=== PATIENT | female | born 1940 | race Caucasian/White ===

== ENCOUNTER 2020-07-17 09:10 | Observation (INO) | payer OTHER ==
[2020-07-17 09:29] VITALS: BMI 24.0
[2020-07-17] MEDS ORDERED: LIDOCAINE 5% TOPICAL PATCH TP ONE (10:02)
[2020-07-17] MEDS ORDERED: ACETAMINOPHEN 325 MG TABLET (FP) PO ONE (10:02)
--- NOTE | 2020-07-17 10:03 | PDOC ---
History of Present Illness - General Chief Complaint: Back Pain Stated Complaint: BACK PAIN Time Seen by Provider: 07/17/20 09:20 History Source: Patient, Old Records Exam Limitations: No Limitations - History of Present Illness Initial Comments: 80 y/o female presenting to [place] ER complaining of atraumatic, right lower back pain with radiation to the lateral aspect of the right hip. Pt reports the pain has been present but minor for the past few weeks. Became acutely worse this morning around 3am when she woke to use the bathroom. Able to self ambulate without assistance. Pain temporarily improved with PO Motrin. Again worse this morning on waking. Called ambulance because she could not get out of bed. Pain is worse with movement of the torso and the right leg, as well palpation of the area. Denies migration of pain, dysuria, hematuria, urinary retention, fecal incontinence, saddle anesthesia, or weakness/paresthesia in her legs or feet, fevers, chills, chest pain, or SOB. Pt reports a remote history of similar pain several years ago that improved with physical therapy. Reviewed old imaging. Plain films in 2013 revealed Grade 2 spondylolisthesis and extensive degenerative changes at L4-L5. Past History - Travel History Traveled outside of the country in the last 30 days: No Close contact w/someone who was outside of country & ill: No - Medical History Allergies/Adverse Reactions: Allergies Allergy/AdvReac Type Severity Reaction Status Date / Time Sulfa (Sulfonamide Allergy Unknown Verified 07/17/20 09:22 Antibiotics) Latex, Natural Rubber AdvReac Verified 03/21/15 06:11 Home Medications: Ambulatory Orders Rosuvastatin Calcium [Crestor] 5 mg PO DAILY 08/25/14 Calcium Carb, Citrate/Vit D3 [Calcium + D3 ER Tablet] 1 each PO BID 07/17/20 Cholecalciferol (Vitamin D3) [Vitamin D3 -] 1,000 unit PO DAILY 07/17/20 Vit A/Vit C/Vit E/Zinc/Copper [Preservision Tablet] 1 each PO DAILY 07/17/20 COPD: No Hypercholesterolemia: Yes Other medical history: LEFT WRIST FX IN CHILDHOOD - Surgical History Other Surgical History: Remote h/o tonsillectomy - Psycho-Social/Smoking History Smoking History: Never smoked - Substance Abuse Hx (Audit-C & DAST Scrn) How often the patient has a drink containing alcohol: 2-4 times / month How often the patient has six or more drinks on one occasion: Never Score: In Men: 4 or > Positive; In Women: 3 or > Positive: 2 Screen Result (Pos requires Nsg. Audit-10AR): Negative In the last yr the pt used illegal drug/Rx for NonMed reason: No Score: Yes response is considered Positive: 0 Screen Result (Positive result requires Nsg. DAST-10): Negative Review of Systems - Review of Systems Able to Perform ROS?: Yes Comments:: 10 point review of systems completed. All systems negative except as noted above. *Physical Exam - Vital Signs Last Vital Signs Temp Pulse Resp BP Pulse Ox 98.0 F 66 15 133/87 100 07/17/20 09:19 07/17/20 09:19 07/17/20 09:19 07/17/20 09:19 07/17/20 09:19 - Physical Exam Vital signs and nursing notes reviewed. Constitutional- Well-developed, well-nourished elderly adult female in no acute distress but obvious discomfort. Found supine on hospital stretcher. Answered all questions appropriately and completely. Head- Normocephalic. No obvious external signs of trauma. Eyes- Sclerae white. Ears- Hearing grossly intact. Neck- Supple, trachea is midline. Cardiovascular / Chest- Regular rate and regular rhythm. No murmur, rubs, clicks, or gallops. Peripheral pulses- radial pulses full. Respiratory- Breathing unlabored. Speaking in multi-word responses without pausing. Equal chest rise and fall. Clear to auscultation bilaterally. No stridor, no wheezing, no rhonchi. Gastrointestinal- abdomen is soft, non-tender, non-distended. No pulsatile masses. No overlying skin lesions or obvious signs of trauma. Neuro- Alert and oriented x4. Moving all four extremities spontaneously. No facial asymmetry. No slurred speech. No focal deficits. Sensation to all four extremities intact. No saddle anesthesia. Normal rectal tone. Back: Diffuse right sided paraspinal and right posterior hip tenderness to palpation. No midline tenderness or obvious bony deformities. Lower extremities: Proximal and distal strength R: 4/5 and L 5/5. Plantar flexion and dorsiflexion 5/5 bilaterally. 3/5 patellar reflexes bilaterally. Skin- Warm, dry, and intact. No bruising, rashes, or other lesions. - No R or L CVA tenderness. Psych- Affect- appropriate. Mood- normal. Speech was non-labored, non- pressured. ED Treatment Course - LABORATORY CBC & Chemistry Diagram: 07/17/20 14:10 07/17/20 14:10 - RADIOLOGY Radiology Studies Ordered: Category Date Time Status HIP & PELVIS-RIGHT [RAD] Stat Radiology 07/17/20 10:03 Ordered SPINE-LUMBAR SACRAL [RAD] Stat Radiology 07/17/20 10:01 Ordered Medical Decision Making - Medical Decision Making 80 y/o female presenting with atraumatic right lower back pain radiating to the lateral aspect of right hip. Acute worsening of chronic mild pain. Plain films of the lumbar spine remarkable for unchanged forward subluxation of L4 and L5 with increased arthritic changes. Suspect MSK vs radicular pain. Low suspicion for Cauda Equina or Conus Medullaris syndromes, nor spinal epidural abscess vs hematoma. Approached pain relief with stepwise fashion. Initially trialed PO Tylenol and Lidoderm patch without improvement. Next given Fentanyl. Pain improved. Leg strength improved but pt remained unable to sit up in bed. Concern for unsafe discharge as pt does not have any assistance at home. 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 CBC and CMP unremarkable for acute derangement. UA revealed trace leukocyte esterase without nitrites or pyuria. Low suspicion for acute clinical relevance. Ordered lumbar MRI to evaluate for further evaluation. Will admit for inability to ambulate and further evaluation. Case discussed with WESTLEY Decker via [employer] and telephone. Requested orthopedic consultation request for Dr. Quezada; was entered in [employer]. Will f/u the consultation and pending MRI results. Observation placed under [facility] attending Dr. Lo. Case discussed with ED Attending Dr. Stock. Edward Alejandro M.D., PGY3 Emergency Medicine Residency Discharge - Discharge Information Problems reviewed: Yes Clinical Impression/Diagnosis: Low back pain radiating to right leg, Unable to ambulate Condition: Stable - Admission Yes - Follow up/Referral - Patient Discharge Instructions - Post Discharge Activity
[2020-07-17] MEDS ORDERED: ACETAMINOPHEN 325 MG TABLET (FP) ONE (11:03)
[2020-07-17] MEDS ORDERED: LIDOCAINE 5% TOPICAL PATCH ONE (11:04)
[2020-07-17 11:07] LABS: EPITHELIAL CELLS RARE /hpf
--- NOTE | 2020-07-17 14:31 | PDOC ---
Attending Attestation - Resident Resident Name: BishopEdward - ED Attending Attestation I have performed the following: I have examined & evaluated the patient, The case was reviewed & discussed with the resident, I agree w/resident's findings & plan, Exceptions are as noted - HPI HPI: 07/17/20 18:09 80 years old with chronic intermittent back pain presents with 2-day history of worsening right-sided paraspinal back discomfort radiating down the right leg unable to get out of bed this morning EMS called - Physicial Exam PE: 07/17/20 18:09 Vitals: Triage Vital signs reviewed General Appearance: No acute distress, well nourished well developed, Head: Atraumatic, Cardiac: Regular rate and rhythym, no murmurs, no rubs, no gallops, Lungs: Clear to auscultation bilateral, good air movement bilaterally, Abdomen: Soft, non distended, normal bowel sounds, non tender to palpation Rectal: No S1-S2 anesthesia good rectal tone Extremities: Full range of motion to all extremities, no cyanosis, clubbing, or edemal Significant pain with range of motion to right lower extremity Skin: Warm and dry, no rashes or lesions, no rash, no petechiae Neuro: strength intact to all extremities, sensation intact to all extremities, Psych: Normal mood, normal affect - Medical Decision Making 07/17/20 18:10 Patient with significant pain rating down right leg unable to transfer from bed Oral and IV pain medication given patient still unable to transfer from bed repeat neurologic examination intact no weakness no numbness reflexes intact no suspicion for spinal cord injury at this time Given patient's inability to transfer will require overnight observation pain control MRI for better delineation of etiology of low back discomfort Discharge - Discharge Information Problems reviewed: Yes Clinical Impression/Diagnosis: Low back pain radiating to right leg, Unable to ambulate Condition: Stable - Follow up/Referral - Patient Discharge Instructions - Post Discharge Activity
[2020-07-17 14:35] LABS: BASO % 1.7 % (0-2.0); EOS % 3.5 % (0-4.5); HEMATOCRIT 40.7 % (32.4-45.2); HEMOGLOBIN 13.4 GM/dl (10.7-15.3); LYMPH % 46.5 % (8-40); MCH 30.7 pg (25.7-33.7); MCHC 32.9 g/dl (32.0-36.0); MEAN CELL VOLUME 93.3 fl (80-96); MEAN PLT VOLUME 9.6 fl (7.5-11.1); MONO % 8.2 % (3.8-10.2); NEUT % 40.1 % (42.8-82.8); PLATELET COUNT 175 K/MM3 (134-434); RBC 4.36 M/mm3 (3.60-5.2); RDW 12.1 % (11.6-15.6); WHITE BLOOD COUNT 7.9 K/mm3 (4.0-10.8)
[2020-07-17 14:42] LABS: ALBUMIN 3.8 g/dl (3.4-5.0); BILIRUBIN,TOTAL 0.6 mg/dl (0.2-1); CALCIUM 8.9 mg/dl (8.5-10); CREATININE 0.6 mg/dl (0.55-1.3); POTASSIUM 4.2 mmol/L (3.5-5.1); TOT PROT 5.8 g/dl (6.4-8.2)
--- NOTE | 2020-07-17 14:54 | HP ---
CHIEF COMPLAINT: Lower back pain PCP: Dr. Solorzano HISTORY OF PRESENT ILLNESS: 80 year-old female with a PMH significant for HLD and chronic back pain. Patient is active, exercises 3x per week. Last seen by an orthopedist 2 years ago, had an MRI which was reportedly unremarkable. She has been experiencing low-grade back pain for several months, taking Advil nightly. Went to bed last night in usual state of health. Woke up at 3am to go to the bathroom and noticed back pain was worse. Took 2 Advil and went back to bed. This morning awoke and pain was worse, so bad as to prevent her from being able to get out of bed. She called EMS and was brought to ED by ambulance. The pain is located in the lower back, just to the right of midline. It does not radiate to the hip, it does not radiate down the leg. Patient has no pain when lying still, sitting still, or standing. Her pain is with movement and repositioning. Patient does not take pain medication on a regular basis. ER course was notable for: (1) LS xray: no acute findings; retained stool Recent Travel: No PAST MEDICAL HISTORY: Hyperlipidemia PAST SURGICAL HISTORY: Social History: lives with who is disabled; exercises 3x per week with free weights, floor exercises Smoking: Alcohol: Drugs: Allergies Sulfa (Sulfonamide Antibiotics) Allergy (Unknown, Verified 07/17/20 09:22) Latex, Natural Rubber Adverse Reaction (Verified 03/21/15 06:11) HOME MEDICATIONS: Home Medications Medication Instructions Recorded Rosuvastatin Calcium [Crestor] 5 mg PO DAILY 08/25/14 Calcium Carb, Citrate/Vit D3 1 each PO BID 07/17/20 [Calcium + D3 ER Tablet] Cholecalciferol (Vitamin D3) 1,000 unit PO DAILY 07/17/20 [Vitamin D3 -] Vit A/Vit C/Vit E/Zinc/Copper 1 each PO DAILY 07/17/20 [Preservision Tablet] REVIEW OF SYSTEMS CONSTITUTIONAL: Absent: fever, chills, diaphoresis, generalized weakness, malaise, loss of appetite, weight change HEENT: Absent: rhinorrhea, nasal congestion, throat pain, throat swelling, difficulty swallowing, mouth swelling, ear pain, eye pain, visual changes CARDIOVASCULAR: Absent: chest pain, syncope, palpitations, irregular heart rate, lightheadedness, peripheral edema RESPIRATORY: Absent: cough, shortness of breath, dyspnea with exertion, orthopnea, wheezing, stridor, hemoptysis GASTROINTESTINAL: Absent: abdominal pain, abdominal distension, nausea, vomiting, diarrhea, constipation, melena, hematochezia GENITOURINARY: Absent: dysuria, frequency, urgency, hesitancy, hematuria, flank pain, genital pain MUSCULOSKELETAL: +lower back pain with movement Absent: myalgia, arthralgia, joint swelling, back pain, neck pain SKIN: Absent: rash, itching, pallor HEMATOLOGIC/IMMUNOLOGIC: Absent: easy bleeding, easy bruising, lymphadenopathy, frequent infections ENDOCRINE: Absent: unexplained weight gain, unexplained weight loss, heat intolerance, cold intolerance NEUROLOGIC: Absent: headache, focal weakness or paresthesias, dizziness, unsteady gait, seizure, mental status changes, bladder or bowel incontinence PSYCHIATRIC: Absent: anxiety, depression, suicidal or homicidal ideation, hallucinations. PHYSICAL EXAMINATION Vital Signs - 24 hr 07/17/20 09:19 Temperature 98.0 F Pulse Rate 66 Respiratory 15 Rate Blood Pressure 133/87 O2 Sat by Pulse 100 Oximetry (%) GENERAL: Awake, alert, and fully oriented, in no acute distress. HEAD: Normal with no signs of trauma. EYES: Pupils equal, round and reactive to light, extraocular movements intact, sclera anicteric, conjunctiva clear. No lid lag. LUNGS: Breath sounds equal, clear to auscultation bilaterally. No wheezes, and no crackles. No accessory muscle use. HEART: Regular rate and rhythm, S1, S2 ABDOMEN: Soft, nontender, not distended BACK: +reproducible tenderness lower back to right of midline @ L5 UPPER EXTREMITIES: 2+ pulses, warm, well-perfused. No cyanosis. No clubbing. No peripheral edema. LOWER EXTREMITIES: 2+ pulses, warm, well-perfused. No calf tenderness. No peripheral edema. NEUROLOGICAL: Cranial nerves II-XII intact. Normal speech. Laboratory Results - last 24 hr 07/17/20 07/17/20 10:30 14:10 WBC 7.9 RBC 4.36 Hgb 13.4 Hct 40.7 MCV 93.3 MCH 30.7 MCHC 32.9 RDW 12.1 Plt Count 175 MPV 9.6 Absolute Neuts (auto) 3.1 Neutrophils % 40.1 L Lymphocytes % 46.5 H Monocytes % 8.2 Eosinophils % 3.5 Basophils % 1.7 Urine Color Yellow Urine Appearance Clear Urine pH 6.0 Urine Protein Negative Urine Glucose (UA) Negative Urine Ketones Negative Urine Blood Negative Urine Nitrite Negative Urine Bilirubin Negative Urine Urobilinogen 0.2 Ur Leukocyte Esterase Trace H Urine RBC 0-2 Urine WBC 0-2 Ur Transition Epith Cell Rare Urine Casts Rare ASSESSMENT/PLAN: 80 year-old female with a PMH significant for HLD and chronic back pain, admitted for lower back pain. Lower back pain --has no pain when not moving, pain only when repositioning; does not radiate --able to sit up and stand with minimal assistance --xray imaging shows no acute process, subluxation of L4 on L5 unchanged since 2013 --possible muscle spasm v. pyriformis syndrome? --start flexeril --IV Tylenol (has been taking daily Advil for weeks, avoid NSAIDS) --PT evaluation --ortho evaluation DVT prophylaxis: subq lovenox Dispo: full code Family Medical History Family History: As Documented Visit type - Medication Review Med list reviewed for High Risk Meds patients 65 and older: Yes - Emergency Visit Emergency Visit: Yes ED Registration Date: 07/17/20 Care time: The patient presented to the Emergency Department on the above date and was hospitalized for further evaluation of their emergent condition. - New Patient This patient is new to me today: No - Critical Care Critical Care patient: No
[2020-07-17] MEDS ORDERED: SENNOSIDES/DOCUSATE COMBO (SENNA PLUS) TABLET (UD) PO ONE (14:56)
[2020-07-17] MEDS ORDERED: CYCLOBENZAPRINE HCL 5 MG TABLET PO SCH (17:00)
[2020-07-17] MEDS ORDERED: ACETAMINOPHEN 1000 MG/100 ML VIAL (NON FORMULARY) IVPB PRN (17:01)
[2020-07-17] MEDS: CYCLOBENZAPRINE HCL 10 MG TABLET (FP) PO SCH (21:58)
[2020-07-17] MEDS: POLYETHYLENE GLYCOL 3350 119 GM BTL PO SCH ×2 (21:59→22:07)
[2020-07-17] MEDS ORDERED: ROSUVASTATIN CA 5 MG TABLET (FP) PO SCH (22:00)
[2020-07-17] MEDS ORDERED: LIDOCAINE PATCH REMOVAL MC SCH (22:00)
[2020-07-18] MEDS: CYCLOBENZAPRINE HCL 10 MG TABLET (FP) PO SCH (05:31)
--- NOTE | 2020-07-18 08:04 | DS ---
Physical Exam: SUBJECTIVE: Patient seen and examined OBJECTIVE: Vital Signs Period Temp Pulse Resp BP Sys/Carr Pulse Ox Last 24 Hr 98.0 F-98.7 F 63-76 15-18 95-133/52-87 94-100 PHYSICAL EXAM GENERAL: Awake, alert, and fully oriented, in no acute distress. LUNGS: Breath sounds equal, clear to auscultation bilaterally. No wheezes, and no crackles. No accessory muscle use. HEART: Regular rate and rhythm, S1, S2 ABDOMEN: Soft, nontender, not distended BACK: +reproducible tenderness lower back to right of midline @ L5 UPPER EXTREMITIES: 2+ pulses, warm, well-perfused. No cyanosis. No clubbing. No peripheral edema. LOWER EXTREMITIES: 2+ pulses, warm, well-perfused. No calf tenderness. No peripheral edema. NEUROLOGICAL: Cranial nerves II-XII intact. Normal speech. LABS Laboratory Results - last 24 hr 07/17/20 07/17/20 07/17/20 10:30 14:10 14:10 WBC 7.9 RBC 4.36 Hgb 13.4 Hct 40.7 MCV 93.3 MCH 30.7 MCHC 32.9 RDW 12.1 Plt Count 175 MPV 9.6 Absolute Neuts (auto) 3.1 Neutrophils % 40.1 L Lymphocytes % 46.5 H Monocytes % 8.2 Eosinophils % 3.5 Basophils % 1.7 Sodium 141 Potassium 4.2 Chloride 106 Carbon Dioxide 25 Anion Gap 10 BUN 19.0 H Creatinine 0.6 Est GFR (CKD-EPI)AfAm 101.18 Est GFR (CKD-EPI)NonAf 87.30 Random Glucose 107 H Calcium 8.9 Total Bilirubin 0.6 AST 23 ALT 27 Alkaline Phosphatase 57 Total Protein 5.8 L Albumin 3.8 Urine Color Yellow Urine Appearance Clear Urine pH 6.0 Urine Protein Negative Urine Glucose (UA) Negative Urine Ketones Negative Urine Blood Negative Urine Nitrite Negative Urine Bilirubin Negative Urine Urobilinogen 0.2 Ur Leukocyte Esterase Trace H Urine RBC 0-2 Urine WBC 0-2 Ur Transition Epith Cell Rare Urine Bacteria Few Urine Casts [employer] HOSPITAL COURSE: Date of Admission:07/17/20 Date of Discharge: 07/18/20 Pre hospital course 80 year-old female with a PMH significant for HLD and chronic back pain. Patient is active, exercises 3x per week. Last seen by an orthopedist 2 years ago, had an MRI which was reportedly unremarkable. She has been experiencing low-grade back pain for several months, taking Advil nightly. Went to bed last night in usual state of health. Woke up at 3am to go to the bathroom and noticed back pain was worse. Took 2 Advil and went back to bed. This morning awoke and pain was worse, so bad as to prevent her from being able to get out of bed. She called EMS and was brought to ED by ambulance. The pain is located in the lower back, just to the right of midline. It does not radiate to the hip, it does not radiate down the leg. Patient has no pain when lying still, sitting still, or standing. Her pain is with movement and repositioning. Patient does not take pain medication on a regular basis. ER course (1) LS xray: no acute findings; retained stool Subsequent hospital course Spondylolthesis, DDD --xray imaging showed no acute process, subluxation of L4 on L5 unchanged since 2013 --possible muscle spasm v. pyriformis syndrome? --treated overnight with flexeril and Tylenol with improvement --seen and evaluated by ortho who sent scripts for Flexeril and meloxicam --may benefit from LSO brace, f/u with ortho in 7-10 days Minutes to complete discharge: 35 Discharge Summary Problems reviewed: Yes Reason For Visit: LOW BACK PAIN RADIATING TO RIGHT LOWER EXTREMITY Current Active Problems Low back pain radiating to right leg (Acute) Unable to ambulate (Acute) Condition: Stable - Instructions Diet, Activity, Other Instructions: You were seen and evaluated by the Dr. Genao's team. They have sent two prescriptions to your pharmacy, cyclobenzaprine/Flexeril and Meloxicam. Take these medications as directed. It is recommended you followup with Dr. Genao in 7-10 days of your discharge. Please call his office to make an appointment. Referrals: Kareem Solorzano MD [Primary Care Provider] - Artie Genao MD [Staff Physician] - 1 Week - Home Medications Comprehensive Discharge Medication List: Ambulatory Orders Rosuvastatin Calcium [Crestor] 5 mg PO DAILY 08/25/14 Calcium Carb, Citrate/Vit D3 [Calcium + D3 ER Tablet] 1 each PO BID 07/17/20 Cholecalciferol (Vitamin D3) [Vitamin D3 -] 1,000 unit PO DAILY 07/17/20 Vit A/Vit C/Vit E/Zinc/Copper [Preservision Tablet] 1 each PO DAILY 07/17/20 This patient is new to me today: No Emergency Visit: Yes ED Registration Date: 07/17/20 Care time: The patient presented to the Emergency Department on the above date and was hospitalized for further evaluation of their emergent condition. Critical Care patient: No - Discharge Referral Referred to [facility] Yes Physician Referral: Kareem Solorzano MD (Int Med)
--- NOTE | 2020-07-18 08:21 | CON.ORTH ---
Consult Reason for Consultation:: lbp - Past Medical History ...: No - Alcohol/Substance Use Hx Alcohol Use: No - Smoking History Smoking history: Never smoked Home Medications - Allergies Allergies/Adverse Reactions: Allergies Allergy/AdvReac Type Severity Reaction Status Date / Time Sulfa (Sulfonamide Allergy Unknown Verified 07/17/20 09:22 Antibiotics) Latex, Natural Rubber AdvReac Verified 03/21/15 06:11 - Home Medications Home Medications: Ambulatory Orders Rosuvastatin Calcium [Crestor] 5 mg PO DAILY 08/25/14 Calcium Carb, Citrate/Vit D3 [Calcium + D3 ER Tablet] 1 each PO BID 07/17/20 Cholecalciferol (Vitamin D3) [Vitamin D3 -] 1,000 unit PO DAILY 07/17/20 Vit A/Vit C/Vit E/Zinc/Copper [Preservision Areds Tablet] 1 each PO DAILY 07/17/20 Cyclobenzaprine HCl 5 mg PO TID #60 tablet 07/18/20 Meloxicam 15 mg PO DAILY #60 tablet 07/18/20 Physical Exam for Ortho Vital Signs: Vital Signs Temperature 98.6 F 07/18/20 06:00 Pulse Rate 76 07/18/20 06:00 Respiratory Rate 18 07/18/20 06:00 Blood Pressure 115/58 L 07/18/20 06:00 O2 Sat by Pulse Oximetry (%) 94 L 07/18/20 06:00 Other Findings/Remarks: LS spine- + paraspinal ttp, mild ttp over right greater troch, ROM with pain but no significantly limited, neg slr, nvi Imaging - Results X-ray: Report Reviewed, Image Reviewed Assessment/Plan 80 year-old female with a PMH significant for HLD and chronic back pain. Patient is active, exercises 3x per week. Last seen by an orthopedist 2 years ago, had an MRI which was reportedly unremarkable. She has been experiencing low-grade back pain for several months, taking Advil nightly. Went to bed last night in usual state of health. Woke up at 3am to go to the bathroom and noticed back pain was worse. Took 2 Advil and went back to bed. This morning awoke and pain was worse, so bad as to prevent her from being able to get out of bed. She called EMS and was brought to ED by ambulance. The pain is located in the lower back, just to the right of midline. It does not radiate to the hip, it does not radiate down the leg. Patient has no pain when lying still, sitting still, or standing. Her pain is with movement and repositioning. Patient does not take pain medication on a regular basis. Pt is currently feeling better today. She denies any numbness, tingling, bowel/bladder dysfunction. a/p L4-5 spondylolithesis, DDD PT eval, wbat NSAIDS and muscle relaxers Heat and stretching ok to d/c from ortho pov may benefit from LSO brace, can be given as outpt f/u in office in 7-10 days d/w Dr. Genao
[2020-07-18 08:24] LABS: BASO % 1.8 % (0-2.0); EOS % 3.3 % (0-4.5); HEMOGLOBIN 13.2 GM/dl (10.7-15.3); LYMPH % 44.7 % (8-40); MCH 31.8 pg (25.7-33.7); MCHC 33.8 g/dl (32.0-36.0); MEAN CELL VOLUME 94.3 fl (80-96); MEAN PLT VOLUME 9.6 fl (7.5-11.1); NEUT % 42.2 % (42.8-82.8); PLATELET COUNT 182 K/MM3 (134-434); RBC 4.14 M/mm3 (3.60-5.2); RDW 12.1 % (11.6-15.6); WHITE BLOOD COUNT 8.9 K/mm3 (4.0-10.8)
[2020-07-18 08:31] LABS: ALBUMIN 3.7 g/dl (3.4-5.0); BILIRUBIN,TOTAL 0.5 mg/dl (0.2-1); CALCIUM 8.8 mg/dl (8.5-10); CREATININE 0.6 mg/dl (0.55-1.3); MAGNESIUM 1.9 mg/dL (1.8-2.4); POTASSIUM 4.1 mmol/L (3.5-5.1); TOT PROT 5.6 g/dl (6.4-8.2)
[2020-07-18] MEDS ORDERED: ENOXAPARIN NA (PORCINE) 40 MG/0.4 ML DISP.SYRIN SQ SCH (10:00)
[2020-07-18] MEDS ORDERED: SENNOSIDES/DOCUSATE COMBO (SENNA PLUS) TABLET (UD) PO SCH (10:00)
[2020-07-18 10:05] VITALS: BP 110/68; PULSE 79; TEMP 98.4
[2020-07-18] MEDS: POLYETHYLENE GLYCOL 3350 119 GM BTL PO SCH (10:07)
--- NOTE | 2020-07-18 10:41 | EKG ---
Test Reason : Blood Pressure : / mmHG Vent. Rate : 063 BPM Atrial Rate : 063 BPM P-R Int : 162 ms QRS Dur : 088 ms QT Int : 448 ms P-R-T Axes : 026 045 039 degrees QTc Int : 458 ms NORMAL SINUS RHYTHM NONSPECIFIC ST AND T WAVE ABNORMALITY NO PREVIOUS ECGS AVAILABLE Confirmed by BONNIE BAIRES MD ([id number]) on 07/18/2020 10:40:37 AM Referred By: AV SINGLETARY Confirmed By:BONNIE BAIRES MD
== END 2020-07-18 12:45 | disposition home or self-care (01) ==
LOC: FER 09:10 → FM/S 14:05
PROVIDERS: ADMIT Internal Medicine; ATTEND Nurse Practitioner Acute Care
PROC: 3E033NZ Introduction of Analgesics, Hypnotics, Sedatives into Peripheral Vein, Percutaneous Approach (ICD-10-PCS; principal; 2020-07-17)
DX: M51.36 Other intervertebral disc degeneration, lumbar region (principal); M43.10 Spondylolisthesis, site unspecified; E78.5 Hyperlipidemia, unspecified; Z88.2 Allergy status to sulfonamides; Z88.8 Allergy status to other drugs, medicaments and biological substances; Z91.09 Other allergy status, other than to drugs and biological substances
CPT/HCPCS: 36415; 72100-TC-FY; 73523-TC-FY; 80053; 81003; 81015; 83735; 85025; 87086; 87186; 93005; 96374; 97116-GP; 97161-GP; 99285-25; G0378; U0003

== ENCOUNTER 2023-06-02 08:27 | Day surgery (SDC) | payer OTHER ==
[2023-05-27 13:43] VITALS: BMI 25.4
[2023-06-02] MEDS ORDERED: PHENYLEPHRINE 2.5% OPTHALMIC DROP 2ML BOTTLE ONE (08:47)
[2023-06-02] MEDS ORDERED: CYCLOPENTOLATE 2% OPHTH SOLN 2 ML BOTTLE ONE (08:47)
[2023-06-02] MEDS ORDERED: CIPROFLOXACIN 0.3% EYE DROPS 5 ML BOTTLE ONE (08:47)
[2023-06-02] MEDS ORDERED: TROPICAMIDE 1% OPHTH SOLN 15 ML BOTTLE ONE (08:47)
[2023-06-02] MEDS ORDERED: TROPICAMIDE 1% OPHTH SOLN 15 ML BOTTLE OS ONE ×3 (09:00→09:10)
[2023-06-02] MEDS ORDERED: CIPROFLOXACIN 0.3% EYE DROPS 5 ML BOTTLE OS ONE ×3 (09:00→09:10)
[2023-06-02] MEDS ORDERED: CYCLOPENTOLATE 2% OPHTH SOLN 2 ML BOTTLE OS ONE ×3 (09:00→09:10)
[2023-06-02] MEDS ORDERED: PHENYLEPHRINE 2.5% OPHTH SOLN 15 ML BOTTLE OS ONE ×3 (09:00→09:10)
[2023-06-02 09:12] VITALS: RESP 16; TEMP 97.4
[2023-06-02] MEDS ORDERED: MIDAZOLAM HCL 2 MG/2 ML SINGLE DOSE VIAL ONE ×2 (09:32→10:31)
[2023-06-02] MEDS ORDERED: NEO/POLYMYX B SULF/DEXAMETH OPHTHALMIC 5ML BOTTLE ONE (09:51)
[2023-06-02] MEDS ORDERED: TETRACAINE 0.5% OPHTH SOLN 2 ML BOTTLE ONE (09:51)
[2023-06-02] MEDS ORDERED: CARBACHOL 0.01% INTRA-OCULAR 1.5 ML VIAL ONE (09:51)
[2023-06-02] MEDS ORDERED: LIDOCAINE 1% P/F 10 MG/ML VIAL ONE (09:51)
[2023-06-02] MEDS ORDERED: EPINEPHrine/PF 1 MG/1 ML (1:1,000) AMPULE ONE (09:51)
[2023-06-02] MEDS ORDERED: BSS (NA/CA/MG/K) BALANCED SALT SOLUTION OPHTH SOLN 15 ML BOTTLE ONE (09:51)
[2023-06-02 10:53] VITALS: BP 116/65; PULSE 66
== END 2023-06-02 11:27 | disposition home or self-care (01) ==
LOC: FASU 08:27
PROVIDERS: ATTEND Ophthalmology
PROC: 08RK3JZ Replacement of Left Lens with Synthetic Substitute, Percutaneous Approach (ICD-10-PCS; principal; 2023-06-02 10:00)
DX: H26.8 Other specified cataract (principal)
CPT/HCPCS: 66984; V2632

== ENCOUNTER 2023-09-07 08:38 | Day surgery (SDC) | payer OTHER ==
[2023-09-02 14:18] VITALS: BMI 25.4
[2023-09-07] MEDS ORDERED: MIDAZOLAM HCL 2 MG/2 ML SINGLE DOSE VIAL ONE (08:45)
[2023-09-07] MEDS: CYCLOPENTOLATE 2% OPHTH SOLN 2 ML BOTTLE ONE ×3 (09:05→09:15)
[2023-09-07] MEDS: TROPICAMIDE 1% OPHTH SOLN 15 ML BOTTLE ONE ×3 (09:05→09:15)
[2023-09-07] MEDS: PHENYLEPHRINE 2.5% OPTHALMIC DROP 2ML BOTTLE ONE ×3 (09:05→09:15)
[2023-09-07] MEDS: CIPROFLOXACIN HCL 0.3% OPHTH 2.5ML BOTTLE ONE ×3 (09:05→09:15)
[2023-09-07 09:07] VITALS: TEMP 97.4
[2023-09-07] MEDS ORDERED: LIDOCAINE 1% P/F 10 MG/ML VIAL ONE (09:28)
[2023-09-07] MEDS ORDERED: TETRACAINE 0.5% OPHTH SOLN 2 ML BOTTLE ONE (09:28)
[2023-09-07] MEDS ORDERED: NEO/POLYMYX B SULF/DEXAMETH OPHTHALMIC 5ML BOTTLE ONE (09:29)
[2023-09-07] MEDS ORDERED: CARBACHOL 0.01% INTRA-OCULAR 1.5 ML VIAL ONE (09:29)
[2023-09-07] MEDS ORDERED: BSS (NA/CA/MG/K) BALANCED SALT SOLUTION OPHTH SOLN 15 ML BOTTLE ONE (09:29)
[2023-09-07 11:10] VITALS: BP 116/74; PULSE 72; RESP 19
== END 2023-09-07 11:12 | disposition home or self-care (01) ==
LOC: FASU 08:38
PROVIDERS: ATTEND Ophthalmology
PROC: 08RJ3JZ Replacement of Right Lens with Synthetic Substitute, Percutaneous Approach (ICD-10-PCS; principal; 2023-09-07 10:11)
DX: H26.8 Other specified cataract (principal)
CPT/HCPCS: 66984; V2632